=== PATIENT | female | born 1960 | race Caucasian/White ===

== ENCOUNTER → 2017-02-07 | Outpatient (CLI) | payer BC ==
[~2017-02-07] MED LIST: ALBUTEROL17 GM INH; CALCIUM + D 6001 TA1 PO; CLARITIN10 M2 PO; GLUCOPHAGE500 MG PO; IBUPROFEN400 MG PO; PREDNISONE10 MG PO; PREMARIN0.3 MG PO; QVAR7.3 G1 INH; ROBITUSSIN-DM118 M1 PO; VALTREX500 MG PO; ZITHROMAX500 MG PO
--- NOTE | ~2017-02-07 | MY11 ---
[facility] A Service of [facility] RADIOLOGY TEXT RESULTS PATIENT: MYCHAL CATHERINE LOCATION: [facility] : 60 UNIT #: [id number] AGE: [address]: Abe Srinivasan MD SEX: F ORDER DR: [id number] [facility] [address] [place], [place] [address] [id number] O MR#: [id number] Acc #: [id number] NAME: MYCHAL CATHERINE : 1960 SEX: F STUDY DATE/TIME: 02/07/2017 13:27 UNIT: [facility] ROOM: STUDY DESCRIPTION: MY Mammogram Screening Dig Salazar Attending Physician: Abe Srinivasan M.D. Ordering Physician: Abe Srinivasan M.D. Primary Care Physician: Abe Srinivasan M.D. MEDICAL IMAGING REPORT This report is preliminary unless electronic signature is present EXAM Bilateral digital screening mammogram with CAD DATE OF EXAMINATION 02/07/2017 HISTORY 56-year-old female with history of bilateral breast reduction in 2005. No personal or family history of breast cancer or current complaints. COMPARISON Bilateral screening mammogram 02/04/2016. 11/19/2013. FINDINGS CC and MLO views were obtained of each breast utilizing digital technique and reviewed with an FDA-approved CAD device. Breast parenchyma is predominantly fat replaced. No new or suspicious nodule, architectural distortion or clustered microcalcification is seen. Fibronodular density in the anterior inferior left breast on the MLO view, 3 cm deep to the nipple is unchanged since 2015 and 2013, in keeping with benign finding. No new or suspicious nodule is identified. No architectural distortion or clustered microcalcification. IMPRESSION BIRADS 2. Benign findings. Routine bilateral screening mammogram is recommended in 1 year. Patients over the age of 40 are entered into a reminder system with target due date for the next mammogram. A result letter will also be sent to the patient. BIRADS: 2 - Benign finding [facility] A Service of [facility] RADIOLOGY TEXT RESULTS PATIENT: MYCHAL CATHERINE LOCATION: [facility] : 60 UNIT #: [id number] AGE: [address]: Abe Srinivasan MD SEX: F ORDER DR: Dictated by... Tracy Rob M.D. THIS IS AN ELECTRONICALLY VERIFIED REPORT Tracy Rob M.D. at 02/08/2017 7:04 AM MIREYA/celestina TD: 02/07/2017 15:28 JOB #: [id number] MEDICAL IMAGING REPORT Page 1 of 1 COPY
== END | disposition home or self-care (01) ==
LOC: CWCC 13:05
DX: Z12.31 Encounter for screening mammogram for malignant neoplasm of breast (principal)
CPT/HCPCS: G0202